=== PATIENT | male | born 1995 | race Caucasian/White ===

== ENCOUNTER → 2019-10-20 | Outpatient (REF) ==
--- NOTE | 2019-10-20 13:57 | REP ---
LIMITED SKULL SERIES: THREE VIEWS. HISTORY: Autopsy. FINDINGS: There are complex comminuted and displaced extensive skull fractures bilaterally. Displaced fracture components are seen in the left parietal, right parietal, frontal, and occipital regions. There is a anterior mandibular ramus fracture on the left. There appears to be a left zygomatic arch fracture. IMPRESSION: Complex comminuted and displaced skull fractures. Left mandible fracture. Left zygoma fracture. Electronically Signed by Chavo Logan MD 10/20/2019 03:22 P
--- NOTE | 2019-10-20 13:57 | REP ---
CERVICAL SPINE: LIMITED STUDY THREE VIEWS. HISTORY: Autopsy. Cervical vertebral body heights are preserved. Alignment appears normal. C7 is not well seen on the lateral projection. No abnormality is seen on the frontal projection in the lower cervical spine. There is a transversely oriented fracture of the right posterolateral 2nd rib. There is a hazy opacity pattern in the upper lobes of the lungs which may reflect pulmonary contusions or hemorrhages. Extensive clothing artifact. Displaced skull fracture components noted as reported on skull series. Otherwise negative. Electronically Signed by Chavo Logan MD 10/20/2019 03:22 P
== END ==
LOC: M LAB 10:00